=== PATIENT | male | born 1965 | race Caucasian/White ===

== ENCOUNTER 2016-12-11 10:36 | Day surgery (SDC) | payer MEDICAID, OTHER ==
[2016-12-09 10:03] VITALS: BMI 25.0
[~2016-12-11 10:36] MED LIST: LACTATED RINGERS 1,000 ML IV SCH
[2016-12-11 11:12] VITALS: RESP 18
[2016-12-11] MEDS ORDERED: PROPOFOL 10 MG/ML 20 ML VIAL IV ONE (11:23)
[2016-12-11] MEDS ORDERED: LIDOCAINE 1% INJ 10MG/ML (20 ML MDV) ONE (11:23)
--- NOTE | 2016-12-11 11:33 | P.GSHP ---
History of Present Illness H&P Date: 12/11/16 Chief Complaint: Colon cancer screening Patient today for screening colonoscopy. He has not had a previously. No bowel related complaints. No family history of colon cancer Past Medical History Past Medical History: No Reported History History of Any Multi-Drug Resistant Organisms: None Reported Past Surgical History: No Surgical Hx Reported Past Anesthesia/Blood Transfusion Reactions: No Reported Reaction Past Psychological History: No Psychological Hx Reported Smoking Status: Light tobacco smoker Past Alcohol Use History: Occasional Additional Past Alcohol Use History / Comment(s): occasionally chews tobacco Past Drug Use History: None Reported - Past Family History Mother Family Medical History: Cancer Additional Family Medical History / Comment(s): breast Medications and Allergies Home Medications Medication Instructions Recorded Confirmed Type Fexofenadine HCl [Leticia Allergy] 180 mg PO DAILY 12/09/16 12/11/16 History Allergies Allergy/AdvReac Type Severity Reaction Status Date / Time No Known Allergies Allergy Verified 12/09/16 09:59 Surgical - Exam Vital Signs Pulse Resp BP Pulse Ox 52 L 18 127/78 97 12/11/16 11:11 12/11/16 11:11 12/11/16 11:11 12/11/16 11:11 Physical exam: General: Well-developed, well-nourished HEENT: Normocephalic, sclerae nonicteric Abdomen: Nontender, nondistended Extremities: No edema Neuro: Alert and oriented Assessment and Plan (1) Colon cancer screening Narrative/Plan: Will plan colonoscopy today. Status: Acute
--- NOTE | 2016-12-11 11:48 | P.PCN ---
Date of Procedure: 12/11/16 Procedure(s) Performed: PREOPERATIVE DIAGNOSIS: Colon cancer screening POSTOPERATIVE DIAGNOSIS: Mild diverticulosis PROCEDURE: Colonoscopy ANESTHESIA: MAC SURGEON: Juanito Cruz M.D. SPECIMENS: None ENDOSCOPIC PROCEDURE: The patient was placed on the endoscopy table in the left decubitus position. The Olympus colonoscope was inserted into the anus and passed under direct visualization to the base of the cecum. The appendiceal orifice was visualized. From that point the scope was slowly withdrawn inspecting all surfaces carefully. There were no neoplastic inflammatory or polypoid lesions throughout the cecum, ascending, transverse, descending, sigmoid and rectum. There was mild diverticulosis noted the sigmoid colon. Digital rectal examination was normal. The patient was taken to the recovery room in stable condition per anesthesia guidelines. RECOMMENDATIONS: Increase fiber. Follow-up colonoscopy 10 years.
[2016-12-11 12:28] VITALS: BP 122/82; PULSE 50
== END 2016-12-11 12:29 | disposition home or self-care (01) ==
LOC: ORWHC2ENDO 10:36
PROVIDERS: ATTEND Surgery
DX: Z12.11 Encounter for screening for malignant neoplasm of colon (principal); K57.30 Diverticulosis of large intestine without perforation or abscess without bleeding; F17.200 Nicotine dependence, unspecified, uncomplicated; Z79.899 Other long term (current) drug therapy; Z80.3 Family history of malignant neoplasm of breast
CPT/HCPCS: J2001; J2704; G0121; 99153

== ENCOUNTER → 2017-04-03 | Outpatient (CLI) | payer MEDICAID ==
--- NOTE | 2017-04-03 08:20 | US ---
EXAMINATION TYPE: US abdomen complete DATE OF EXAM: 04/03/2017 8:08 AM COMPARISON: NONE CLINICAL HISTORY: R74.8 Abnormal Enzyme levels. No pain, NPO EXAM MEASUREMENTS: Liver Length: 16.6 cm Gallbladder Wall: 0.2 cm CBD: 0.3 cm Spleen: 10.0 cm Right Kidney: 11.0 x 5.0 x 5.8 cm Left Kidney: 10.3 x 5.1 x 6.4 cm Pancreas: Obscured by bowel gas Liver: wnl Gallbladder: wnl, fold seen Evidence for sonographic Sahu's sign: neg CBD: wnl Spleen: wnl Right Kidney: wnl Left Kidney: wnl Upper IVC: seen Abd Aorta: seen The liver is homogenous. The intrahepatic portion of the IVC and proximal abdominal aorta are within normal limits. There is no evidence of cholelithiasis. Common bile duct is unremarkable. The visu alized portions of the pancreas are homogenous. The spleen is unremarkable. Kidneys are symmetric a nd free of hydronephrosis. No renal lesions are seen. IMPRESSION: Unremarkable study
== END | disposition home or self-care (01) ==
LOC: RADUSWWP 07:37
PROVIDERS: ATTEND Family Medicine
DX: R74.8 Abnormal levels of other serum enzymes (principal)
CPT/HCPCS: 76700

== ENCOUNTER → 2017-12-05 | Outpatient (CLI) | payer MEDICAID ==
--- NOTE | 2017-12-05 08:27 | MR ---
EXAMINATION TYPE: MR knee LT wo con DATE OF EXAM: 12/05/2017 COMPARISON: NONE HISTORY: Left knee pain TECHNIQUE: Multiplanar, multisequence imaging of the left knee is performed without IV contrast. FINDINGS: MEDIAL MENISCUS: There is mild increased signal within the substance of the posterior horn medial men iscus. Findings could be related to some internal derangement or some degenerative change. Some subtl e minimal increased linear signal may be within the anterior portion anterior horn medial meniscus of likely related to degenerative change. LATERAL MENISCUS: Anterior and posterior horns are intact without tear. CRUCIATE LIGAMENTS: The anterior and posterior cruciate ligaments are intact and unremarkable. COLLATERAL LIGAMENTS: Medial collateral ligament has increased signal adjacent which could reflect a mild strain. No tear or internal derangement is evident. Lateral collateral ligament appears intact. EXTENSOR MECHANISM: There is mild increased signal near the insertion of the patellar tendon. Correla te for strain. Distal quadriceps tendon and more proximal patellar tendon appear intact. EFFUSION: There is a mild joint effusion throughout the joint space. POPLITEAL CYST: There is a complex popliteal cyst in the popliteal space. The major component measur es 2.6 x 1.0 cm in size. There is additional 2.2 x 1.6 cm area connected inferiorly and a small amoun t of posterior popliteal space fluid more superiorly. TRICOMPARTMENT SPACES: The joint spaces are CARTILAGE: Articular cartilage is preserved. There is some mild thinning of the articular cartilage o f the medial compartment joint space. BONE MARROW SIGNAL: There is increased signal within the mid distal femur just lateral to the midline . Anterior increased signal is also present in the lateral femoral condyle. Findings could be related to contusion. Consider possible osteochondral defect in the anterior lateral femoral condyle with so me superficial thinning of the articular cartilage. The patella and tibia have normal appearance. OTHER: No additional significant abnormality is appreciated. IMPRESSION: 1. Small diffuse joint effusion. 2. Internal derangement and/or degenerative change anterior and posterior horns of medial meniscus, g reater in the posterior horn. 3. Probable strain of the medial collateral ligament. 4. Suspected contusion of the distal femur. An osteochondral defect along the anterior lateral femora l condyle could also be considered. 5. Small amount of strain at the insertion of the patellar tendon on the tibia. 6. Popliteal cyst
== END | disposition home or self-care (01) ==
LOC: RADMRIMAIN 07:20
PROVIDERS: ATTEND Orthopaedic Surgery
DX: M23.92 Unspecified internal derangement of left knee (principal); M25.862 Other specified joint disorders, left knee; M71.22 Synovial cyst of popliteal space [Baker], left knee; Z98.890 Other specified postprocedural states

== ENCOUNTER → 2018-01-20 | Outpatient (CLI) | payer MEDICAID ==
[2018-01-20 10:32] LABS: Potassium 4.6 mmol/L (3.5-5.1)
[2018-01-20 10:36] LABS: HCT 41.1 % (39.0-53.0); HGB 13.1 gm/dL (13.0-17.5); MCH 31.2 pg (25.0-35.0); MCV 97.7 fL (80.0-100.0); Mean Platelet Volume 6.8; Platelet Count 271 k/uL (150-450); RBC 4.21 m/uL (4.30-5.90); RDW 12.3 % (11.5-15.5); WBC 4.9 k/uL (3.8-10.6)
[2018-01-20 14:07] LABS: Lymphocytes # (M) 0.69 k/uL (1.0-4.8); Monocytes # (M) 0.49 k/uL (0-1.0); Neutrophils # (M) 3.53 k/uL (1.3-7.7); Neutrophils % (M) 72 %; Nucleated Red Blood Cells 0 /100 WBC (0-0); Total Cells Counted 100
== END | disposition home or self-care (01) ==
LOC: LABPAT 09:35
PROVIDERS: ATTEND Orthopaedic Surgery
DX: Z01.818 Encounter for other preprocedural examination (principal); Z01.812 Encounter for preprocedural laboratory examination; M23.92 Unspecified internal derangement of left knee
CPT/HCPCS: 36415; 80051; 85027; 93005

== ENCOUNTER → 2018-02-12 | Day surgery (SDC) | payer MEDICAID ==
[2018-02-09 11:45] VITALS: BMI 24.3
--- NOTE | 2018-02-11 19:32 | HP ---
HISTORY AND PHYSICAL DATE OF SURGERY: 02/12/2018 Jj Gallegos is a 52-year-old patient seen with progressive left knee pain. Treatment options were discussed. He elected to proceed with left knee arthroscopy. Consent was obtained. PAST MEDICAL HISTORY: Noncontributory. PAST SURGICAL HISTORY: Noncontributory. DAILY MEDICATIONS: None reported. ALLERGIES: NONE REPORTED. SOCIAL HISTORY: Patient denies tobacco use. PHYSICAL EVALUATION OF THE LEFT KNEE: Range of motion 0 to 125 degrees. There is mild effusion present. Tenderness, medial joint line. Positive medial Rebecca's. Ligaments stable. Hip rotation without pain. Distal neurovascular exam is intact. RADIOGRAPHS: Radiographs were obtained of the left knee revealing mild osteoarthritis. MRI of the left knee revealed abnormal signal of the medial meniscus and osteochondral defect of the medial femoral condyle. IMPRESSION: Internal derangement, left knee, with meniscal tear versus osteochondral tear. PLAN: Left knee arthroscopy with partial meniscectomy versus chondroplasty and debridement. MMODL / IJN: [id number] /
[~2018-02-12] MED LIST changes: +BUPIVACAINE (PF) 0.25% 30 ML VIAL INTRAARTIC ONE; +DEXAMETHASONE SOD PHOSPHATE 10 MG/ML 1 ML VIAL IV ONE; +HYDROcodone/APAP 5-325MG 1 EACH TAB PO ONE; -LACTATED RINGERS 1,000 ML IV SCH; +LIDOCAINE 1% 20 ML VIAL (10MG/ML) FOR IV START INTRADERMA ONE; +LIDOCAINE 1% INJ 10MG/ML (20 ML MDV) ONE; +MIDAZOLAM 2 MG/2 ML VIAL ONE; +ONDANSETRON 4 MG/2 ML VIAL IVP ONE; +PROPOFOL 10 MG/ML 20 ML VIAL IV ONE; +ceFAZolin IN SWFI 2 GM/20 ML SYRINGE IVP ONE; +fentaNYL (PF) 50 MCG/ML 2 ML AMP ONE
[2018-02-12] MEDS: LACTATED RINGERS 1,000 ML IV SCH ×2 (07:52→08:39)
--- NOTE | 2018-02-12 09:44 | P.OP ---
Date of Procedure: 02/12/18 Preoperative Diagnosis: Internal derangement left knee Postoperative Diagnosis: 1. Tear medial and lateral meniscus left knee 2. Grade 3/4 chondromalacia medial femoral condyle left knee 3. Grade 2/3 chondromalacia medial tibial plateau left knee 4. 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 Reactive synovitis medial and suprapatellar compartments left knee Procedure(s) Performed: 1. Arthroscopic partial medial and lateral meniscectomy left knee 2. Arthroscopic chondroplasty medial femoral condyle left knee 3. Arthroscopic microfracture medial femoral condyle left knee 4. Arthroscopic chondroplasty medial tibial plateau left knee 5. Arthroscopic chondroplasty patella left knee 6. Arthroscopic partial synovectomy medial and suprapatellar compartments left knee Anesthesia: ROBERTA, local Surgeon: Keo Hernández Estimated Blood Loss (ml): 8 Pathology: none sent Condition: stable Disposition: PACU Indications for Procedure: 52-year-old patient seen with progressive left knee pain. After having treatment options discussed, he elected to proceed with arthroscopy. Operative Findings: see description of procedure Description of Procedure: Patient was taken to the operative suite. Patient underwent a general anesthetic by the department of anesthesia. Patient was given preoperative antibiotics. The left lower extremity was placed in a well-padded arthroscopic leg [place]. The left leg was prepped and draped in the normal sterile orthopedic fashion. A lateral parapatellar and suprapatellar incision was made. Trochars were inserted. Arthroscopy was initiated. Suprapatellar pouch revealed diffuse thick reactive synovitis. The patellofemoral joint appeared to articulate congruently. There was grade 3 and 4 chondromalacia changes of the patella and femoral sulcus with osteochondral tears present. The scope was guided into the medial gutter. No loose bodies or plica were identified. The scope was then guided into the medial compartment. A medial parapatellar incision was made. Trocar inserted followed by probe. There was a complex tear involving the posterior horn medial meniscus which did extend just shy of the mid body. There was a large central osteochondral defect of the medial femoral condyle with grade 3 and 4 chondromalacia changes in peripheral osteochondral tears present. There was grade 2/3 chondromalacia the tibial plateau. There was reactive synovitis present. I performed a partial medial meniscectomy down to stable tissue. I performed chondroplasties of both the femoral condyle and tibial plateau getting down to stable articular tissue. I performed a partial synovectomy. The defect of the medial femoral condyle measured 1.5 cm in diameter. I performed a microfracture centrally. The residual surface was again probed and found to be stable. Scope and probe were then guided into the intercondylar notch. Cruciates were identified, probed and found to be stable. The scope and probe were then guided into lateral compartment. There was some small radial peripheral tearing of the midbody lateral meniscus. There were grade 1 chondromalacia changes lateral compartment. I performed a partial lateral meniscectomy down to stable tissue. The residual meniscus was stable. The scope was in guided back into the suprapatellar compartment. I introduced a motorized shaver into the super patellar compartment. I debrided some piecemeal fragments of meniscus. I performed a chondroplasty of patella and femoral sulcus. I performed partial synovectomy. I now introduced the [employer] and completed my chondroplasty down to stable articular tissue. The area was probed and found to be stable. Instruments were now removed from the joint. The joint was infiltrated with .25% Marcaine. Steri-Strips were applied to the portal sites. Sterile dressings were applied. The patient was placed into a DANIELA hose. No tourniquet was utilized. The patient was awakened, transferred to a bed and taken to recovery stable satisfactory condition.
[2018-02-12 09:47] VITALS: TEMP 97.6
[2018-02-12] MEDS: MORPHINE SULFATE 4 MG/ML SYRINGE IV PRN ×2 (09:53→10:19)
[2018-02-12 10:56] VITALS: BP 152/68; PULSE 49; RESP 18
== END | disposition home or self-care (01) ==
LOC: OR 07:16
PROVIDERS: ATTEND Orthopaedic Surgery
DX: M23.301 Other meniscus derangements, unspecified lateral meniscus, left knee (principal); M23.322 Other meniscus derangements, posterior horn of medial meniscus, left knee; M65.862 Other synovitis and tenosynovitis, left lower leg; M93.862 Other specified osteochondropathies, left lower leg; M94.262 Chondromalacia, left knee
CPT/HCPCS: 29880; J2250; J2270; J1100; J2405; J2001; J3010; J2704; J0690

== ENCOUNTER → 2022-12-04 | Outpatient (CLI) | payer MEDICAID ==
--- NOTE | 2022-12-04 16:42 | US ---
EXAMINATION TYPE: US abdomen complete DATE OF EXAM: 12/04/2022 COMPARISON: US dated 04/03/2017 CLINICAL HISTORY: F10.19 Alcohol a, R74.01 ELEVATION OF LEVELS OF LIVER TRANSA. TECHNIQUE: Multiple sonographic images of the abdomen are obtained. FINDINGS: EXAM MEASUREMENTS: Liver Length: 14.6 cm Gallbladder Wall: 0.3 cm CBD: 0.4 cm Spleen: 10.0 cm Right Kidney: 12.1 x 6.0 x 5.7 cm Left Kidney: 11.6 x 6.1 x 5.9 cm [employer] NOTES: Pancreas: not well visualized due to midline bowel gas. Liver: difficult to penetrate Gallbladder: No stones seen Evidence for sonographic Sahu's sign: No CBD: wnl Spleen: wnl Right Kidney: No hydronephrosis or masses seen Left Kidney: No hydronephrosis or masses seen Upper IVC: wnl Abd Aorta: wnl IMPRESSION: 1 visualized abdomen ultrasound appears unremarkable
== END | disposition home or self-care (01) ==
LOC: RADUSWWP 07:30
PROVIDERS: ATTEND Family Medicine
DX: F10.19 Alcohol abuse with unspecified alcohol-induced disorder (principal); R74.01 Elevation of levels of liver transaminase levels
CPT/HCPCS: 76700